=== PATIENT | male | born 1990 | race Hispanic/Latino ===

== ENCOUNTER 2018-04-07 06:46 | Emergency (ER) | payer OTHER ==
--- NOTE | 2018-04-07 09:35 | ED PDOC ---
HPI: Psych/Substance Abuse Time Seen by Provider: 04/07/18 07:13 Chief Complaint (Nursing): Alcohol Ingestion Chief Complaint (Provider): Alcohol Ingestion History Per: Patient History/Exam Limitations: no limitations Onset/Duration Of Symptoms: Hrs Current Symptoms Are (Timing): Still Present Suicide/Self Injury Attempted (Context): None Modifying Factor(s): Alcohol Additional Complaint(s): 28 y/o male with no significant PMHx brought to the ED for alcohol intoxication. Patient was found sleeping in the lobby of a building. Patient admits to drinking alcohol. Patient denies fall, headache, chest pain, shortness of breath and drug use. Of note, an abrasion was noted to the patient's chin. When asked, patient reports he tripped and fell two days ago sustaining that abrasion. PMD: none Past Medical History Reviewed: Historical Data, Nursing Documentation, Vital Signs Vital Signs: Last Vital Signs Temp 98.0 F 04/07/18 06:55 Pulse 104 H 04/07/18 06:55 Resp 16 04/07/18 06:55 BP 144/93 H 04/07/18 06:55 Pulse Ox 99 04/07/18 06:55 - Medical History PMH: No Chronic Diseases - Surgical History Surgical History: No Surg Hx - Family History Family History: States: No Known Family Hx - Social History Alcohol: > 2 Drinks/Day Drugs: Denies - Allergies Allergies/Adverse Reactions: Allergies Allergy/AdvReac Type Severity Reaction Status Date / Time No Known Allergies Allergy Verified 04/07/18 07:01 Review of Systems ROS Statement: Except As Marked, All Systems Reviewed And Found Negative Cardiovascular: Negative for: Chest Pain Respiratory: Negative for: Shortness of Breath Neurological: Negative for: Headache Psych: Positive for: Other (alcohol intoxication) Physical Exam - Reviewed Nursing Documentation Reviewed: Yes Vital Signs Reviewed: Yes - Physical Exam Appears: Positive for: No Acute Distress Head Exam: Positive for: ATRAUMATIC, NORMOCEPHALIC Skin: Positive for: Normal Color, Warm, Dry Eye Exam: Positive for: Normal appearance, EOMI, PERRL Neck: Positive for: Normal Cardiovascular/Chest: Positive for: Regular Rate, Rhythm. Negative for: Murmur Respiratory: Positive for: Normal Breath Sounds. Negative for: Respiratory Distress Extremity: Positive for: Normal ROM. Negative for: Deformity Neurologic/Psych: Positive for: Alert, Oriented (x3). Negative for: Motor/Sens ory Deficits - ECG O2 Sat by Pulse Oximetry: 99 (RA) Pulse Ox Interpretation: Normal - Progress ED Course And Treament: 1007: Stable. AAOx3. Tolerated PO. Ambulated with no issues. Fu with pcp. Clinical sobriety reached. Medical Decision Making Medical Decision Making: Time: 742 Plan: -- Glucose, POC -- POC [Glucose, Blood, POC] Scribe Attestation: Documented by Pierre Hartman, acting as a scribe for Henry Grissom MD. Provider Scribe Attestation: All medical record entries made by the Scribe were at my direction and personally dictated by me. I have reviewed the chart and agree that the record accurately reflects my personal performance of the history, physical exam, medical decision making, and the department course for this patient. I have also personally directed, reviewed, and agree with the discharge instructions and disposition. Disposition - Clinical Impression Clinical Impression: Alcohol abuse - Patient ED Disposition Is Patient to be Admitted: No Counseled Patient/Family Regarding: Diagnosis, Need For Followup - Disposition Referrals: [facility] [place] [Outside] - 04/09/18 Disposition: Routine/Home Disposition Time: 10:08 Condition: STABLE Additional Instructions: Return if not better in 3 days. Instructions: Alcohol Abuse and Alcoholism (DC)
[2018-04-07 10:36] VITALS: BP 132/74; PULSE 98; RESP 17; TEMP 98.3; O2SAT 100
== END 2018-04-07 10:39 | disposition home or self-care (01) ==
LOC: H.ER 06:46
DX: F10.10 Alcohol abuse, uncomplicated (principal); S00.81XA Abrasion of other part of head, initial encounter; W01.0XXA Fall on same level from slipping, tripping and stumbling without subsequent striking against object, initial encounter